=== PATIENT | male | born 1975 ===

== ENCOUNTER 2018-03-21 07:18 | Emergency (ER) | payer MEDICAID ==
[2018-03-21 07:22] VITALS: BMI 26.6
[2018-03-21 07:23] VITALS: RESP 16; TEMP 97.8
[2018-03-21] MEDS ORDERED: cefTRIAXone (Rocephin) 250 mg Inj IM ONE (07:39)
[2018-03-21] MEDS ORDERED: cefTRIAXone (Rocephin) 250 mg Inj ONE (07:48)
--- NOTE | 2018-03-21 07:48 | ED PDOC ---
HPI: Male Pain Time Seen by Provider: 03/21/18 07:33 Chief Complaint (Nursing): Male Genitourinary History Per: Patient (42 yo male presenting to the ER becaues of burning in the urine and penile discharge for 2-3 days. States that he had unprotected sex with a female that he only sees on weekends. He has previously had similar infection and recalls being treated with an injection and some pills about one year ago. He denies other symptoms. He does not see any doctors regularly and states that he does not have a phone.) History/Exam Limitations: no limitations Past Medical History Reviewed: Historical Data, Nursing Documentation, Vital Signs Vital Signs: Last Vital Signs Temp 97.8 F 03/21/18 07:22 Pulse 83 03/21/18 07:22 Resp 16 03/21/18 07:22 BP 103/70 03/21/18 07:22 Pulse Ox 99 03/21/18 07:22 - Medical History PMH: Pulmonary Embolism Denies: Diabetes, HIV, HTN, Chronic Kidney Disease, Seizures, Sexually Transmitted Disease - Surgical History Surgical History: No Surg Hx - Family History Family History: States: Unknown Family Hx - Living Arrangements Living Arrangements: Alone - Social History Current smoker - smoking cessation education provided: No - Immunization History Hx Tetanus Toxoid Vaccination: No Hx Influenza Vaccination: No Hx Pneumococcal Vaccination: No - Home Medications Home Medications: Ambulatory Orders Medication Instructions Recorded Albuterol HFA [Ventolin HFA 90 2 puff IH [id number] PRN #60 puff 07/04/17 mcg/actuation (8 g)] Azithromycin [Z-Vitaly] 250 mg PO DAILY #6 tab 07/04/17 Fluticasone/Salmeterol 250/50 1 puff INH RQ12 #1 puff 07/04/17 [Advair Diskus 250/50] - Allergies Allergies/Adverse Reactions: Allergies Allergy/AdvReac Type Severity Reaction Status Date / Time APPLE Allergy RASH Uncoded 03/21/18 07:30 SHRIMP Allergy RASH Uncoded 03/21/18 07:30 Review of Systems ROS Statement: Except As Marked, All Systems Reviewed And Found Negative Constitutional: Negative for: Fever, Chills Gastrointestinal: Negative for: Abdominal Pain Genitourinary Male: Positive for: Dysuria, Penile Discharge Physical Exam - Reviewed Nursing Documentation Reviewed: Yes Vital Signs Reviewed: Yes - Physical Exam Appears: Positive for: Well, Non-toxic, No Acute Distress Head Exam: Positive for: ATRAUMATIC, NORMAL INSPECTION, NORMOCEPHALIC Skin: Positive for: Normal Color, Warm, DRY Eye Exam: Positive for: Normal appearance, EOMI Neck: Positive for: Normal, Painless ROM Respiratory: Negative for: Respiratory Distress Gastrointestinal/Abdominal: Negative for: Distended Back: Positive for: Normal Inspection Extremity: Positive for: Normal ROM Neurologic/Psych: Positive for: Alert - Laboratory Results Urine dip results: Positive for: Leukocyte Esterase - ECG O2 Sat by Pulse Oximetry: 99 Disposition - Clinical Impression Clinical Impression: Penile discharge - Patient ED Disposition Is Patient to be Admitted: No Doctor Will See Patient In The: Office Counseled Patient/Family Regarding: Diagnosis, Need For Followup - Disposition Referrals: [facility] [Outside] [facility] [Outside] Disposition: Routine/Home Disposition Time: 07:50 Condition: STABLE - POA Present On Arrival: None
[2018-03-21 08:07] VITALS: BP 110/72; PULSE 72; O2SAT 98
== END 2018-03-21 08:07 | disposition home or self-care (01) ==
LOC: H.ER 07:18
DX: A54.9 Gonococcal infection, unspecified (principal)
CPT/HCPCS: 87491; 87591; 96372; 99282; J0696

== ENCOUNTER 2018-03-23 12:40 | Emergency (ER) | payer MEDICAID ==
[2018-03-23 12:41] VITALS: BMI 26.6
[2018-03-23 12:48] VITALS: BP 124/87; PULSE 88; RESP 16; TEMP 98; O2SAT 99
--- NOTE | 2018-03-23 13:10 | ED PDOC ---
HPI: General Adult Time Seen by Provider: 03/23/18 12:56 Chief Complaint (Nursing): Anxiety Chief Complaint (Provider): Anxiety History Per: Patient History/Exam Limitations: no limitations Onset/Duration Of Symptoms: Days (2) Additional Complaint(s): Pt. states feeling anxious since not using heroine for 2 days. Also some weakness. No chest pain, dyspnea, headaches, numbness, tingles. Denies any other drug or etoh use. Not homicidal. States can't live like this (with current symptoms) and wants something to make him sleep forever. No back pain. Past Medical History Reviewed: Nursing Documentation, Vital Signs Vital Signs: Last Vital Signs Temp 98.0 F 03/23/18 12:45 Pulse 88 03/23/18 12:45 Resp 16 03/23/18 12:45 BP 124/87 03/23/18 12:45 Pulse Ox 99 03/23/18 12:45 - Medical History PMH: Denies: Diabetes, Hepatitis, HIV, HTN, Chronic Kidney Disease, Seizures, Sexually Transmitted Disease - Surgical History Surgical History: No Surg Hx - Family History Family History: States: Unknown Family Hx - Social History Alcohol: None Drugs: Opiates - Immunization History Hx Tetanus Toxoid Vaccination: No Hx Influenza Vaccination: No Hx Pneumococcal Vaccination: No - Home Medications Home Medications: Ambulatory Orders Medication Instructions Recorded Albuterol HFA [Ventolin HFA 90 2 puff IH [id number] PRN #60 puff 07/04/17 mcg/actuation (8 g)] Azithromycin [Z-Vitaly] 250 mg PO DAILY #6 tab 07/04/17 Fluticasone/Salmeterol 250/50 1 puff INH RQ12 #1 puff 07/04/17 [Advair Diskus 250/50] - Allergies Allergies/Adverse Reactions: Allergies Allergy/AdvReac Type Severity Reaction Status Date / Time APPLE Allergy RASH Uncoded 03/23/18 12:44 SHRIMP Allergy RASH Uncoded 03/23/18 12:44 Review of Systems ROS Statement: Except As Marked, All Systems Reviewed And Found Negative Constitutional: Positive for: Weakness Neurological: Positive for: Weakness Psych: Positive for: Anxiety, Suicidal ideation Physical Exam - Reviewed Nursing Documentation Reviewed: Yes Vital Signs Reviewed: Yes - Physical Exam Appears: Positive for: Non-toxic, No Acute Distress Head Exam: Positive for: ATRAUMATIC, NORMAL INSPECTION, NORMOCEPHALIC Skin: Positive for: Normal Color, Warm, DRY Eye Exam: Positive for: EOMI, Normal appearance, PERRL ENT: Positive for: Normal ENT Inspection Neck: Positive for: Normal, Painless ROM Cardiovascular/Chest: Positive for: Regular Rate, Rhythm Respiratory: Positive for: CNT, Normal Breath Sounds Gastrointestinal/Abdominal: Positive for: Normal Exam, Soft. Negative for: Tenderness Back: Positive for: Normal Inspection. Negative for: L CVA Tenderness, R CVA Tenderness Extremity: Positive for: Normal ROM. 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 Negative for: Motor/Sensory Deficits - ECG ECG: Positive for: Interpreted By Me, Viewed By Me ECG Rhythm: Positive for: Normal QRS, Normal ST Segment, Sinus Rhythm O2 Sat by Pulse Oximetry: 99 Pulse Ox Interpretation: Normal - Progress ED Course And Treament: 1321: Stable. AAOx3. Crisis saw pt. Does not meet criteria for admit. [facility] hospital detox. Disposition - Clinical Impression Clinical Impression: Opiate dependence - Patient ED Disposition Is Patient to be Admitted: No Counseled Patient/Family Regarding: Studies Performed, Diagnosis, Need For Followup - Disposition Referrals: [facility] [Outside] - 03/24/18 Disposition: Routine/Home Disposition Time: 13:25 Condition: STABLE Additional Instructions: Return if not better in 3 days. Instructions: Drug Abuse Treatment
--- NOTE | 2018-03-25 11:23 | CARD ---
APPROVED REPORT EKG Measurement Heart [id number] <Conclusion> Normal sinus rhythm Normal ECG
== END 2018-03-23 13:46 | disposition home or self-care (01) ==
LOC: H.ER 12:40
DX: F11.20 Opioid dependence, uncomplicated (principal)

== ENCOUNTER 2018-06-06 08:47 | Emergency (ER) | payer MEDICAID ==
[2018-06-06 08:56] VITALS: RESP 16; TEMP 98.7
[2018-06-06 08:57] VITALS: BMI 27.4
[2018-06-06] MEDS ORDERED: cefTRIAXone (Rocephin) 250 mg Inj IM ONE (09:13)
--- NOTE | 2018-06-06 09:17 | ED PDOC ---
HPI: Male Pain Time Seen by Provider: 06/06/18 09:02 Chief Complaint (Nursing): Male Genitourinary Chief Complaint (Provider): dysuria, urethral discharge History Per: Patient History/Exam Limitations: no limitations Onset/Duration Of Symptoms: Days (3) Current Symptoms Are (Timing): Still Present Severity: Mild Quality Of Discomfort: Burning Associated Symptoms: Urinary Symptoms. denies: Fever, Chills, Nausea, Vomiting , Diarrhea, Loss Of Appetite Alleviating Factors: None Additional Complaint(s): 42yo male c/o urethral discharge and dysuria ongoing for several days, concern about STI, states sexually active with several women without protection. Refused HIV testing states had it at a [facility] about 2 weeks ago when they were offering [employer] gift card for getting tested. Denies fever, back pain, hematuria, lesions/sores on genitals or oral symptoms. Sexually active w several women, no men, no rarely uses barrier protection. Past Medical History Reviewed: Historical Data, Nursing Documentation Vital Signs: Last Vital Signs Temp 98.7 F 06/06/18 08:56 Pulse 81 06/06/18 08:56 Resp 16 06/06/18 08:56 BP 109/72 06/06/18 08:56 Pulse Ox 99 06/06/18 08:56 - Medical History PMH: COPD, Pulmonary Embolism Denies: Diabetes, Hepatitis, HIV, HTN, Chronic Kidney Disease, Seizures, Sexually Transmitted Disease - Surgical History Surgical History: No Surg Hx - Family History Family History: States: No Known Family Hx - Social History Current smoker - smoking cessation education provided: Yes - Immunization History Hx Tetanus Toxoid Vaccination: No Hx Influenza Vaccination: No Hx Pneumococcal Vaccination: No - Home Medications Home Medications: Ambulatory Orders Medication Instructions Recorded No Known Home Med 03/23/18 - Allergies Allergies/Adverse Reactions: Allergies Allergy/AdvReac Type Severity Reaction Status Date / Time APPLE Allergy RASH Uncoded 06/06/18 09:07 SHRIMP Allergy RASH Uncoded 06/06/18 09:07 Review of Systems Constitutional: Negative for: Fever Respiratory: Negative for: Cough, Shortness of Breath Gastrointestinal: Negative for: Abdominal Pain Genitourinary Male: Positive for: Dysuria, Penile Discharge. Negative for: Scrotal Pain, Rash, Penile Pain Musculoskeletal: Negative for: Back Pain Skin: Negative for: Rash, Lesions Neurological: Negative for: Weakness, Altered Mental Status Physical Exam - Reviewed Nursing Documentation Reviewed: Yes Vital Signs Reviewed: Yes - Physical Exam Appears: Positive for: Well, Non-toxic Head Exam: Positive for: ATRAUMATIC Skin: Positive for: Normal Color, Warm Eye Exam: Positive for: Normal appearance, EOMI Gastrointestinal/Abdominal: Negative for: Tenderness Male Genital Exam: Positive for: urethral discharge. Negative for: epididymal tenderness, erythema, hernia mass, inguinal tenderness, lesions, scrotum tenderness (R), scrotum tenderness (L) - ECG O2 Sat by Pulse Oximetry: 99 Medical Decision Making Medical Decision Making: check GC/ chlamydia but treat empirically given symptoms and exam rec condom use and tell all partners to be treated/tested refused HIV testing Disposition - Disposition
[2018-06-06] MEDS ORDERED: cefTRIAXone (Rocephin) 250 mg Inj ONE (09:32)
[2018-06-06 09:34] LABS: URINE BILIRUBIN NEGATIVE (NEGATIVE); URINE BLOOD NEGATIVE (NEGATIVE); URINE CLARITY SLIGHTY-CLOUDY (Clear); URINE COLOR YELLOW (YELLOW); URINE GLUCOSE (UA) NEG (Normal); URINE LEUKOCYTE ESTERASE MOD Leu/uL (Negative); URINE PROTEIN NEGATIVE (NEGATIVE); URINE UROBILINOGEN 0.2-1.0 mg/dL (0.2-1.0)
[2018-06-06 11:02] VITALS: BP 112/74; PULSE 88; O2SAT 98
== END 2018-06-06 11:02 | disposition home or self-care (01) ==
LOC: H.ER 08:47
DX: A54.9 Gonococcal infection, unspecified (principal)
CPT/HCPCS: 81003; 87070; 87086; 87491; 87591; 96372; 99282; J0696